=== PATIENT | female | born 1950 | race Hispanic/Latino ===

== ENCOUNTER 2018-01-09 08:32 | Day surgery (SDC) | payer MEDICARE ==
[2015-03-29 10:53] VITALS: BMI 37.8
[2018-01-09] MEDS ORDERED: Propofol 10 mg/ml Inj (20 ML) ONE ×2 (10:58→11:33)
[2018-01-09] MEDS ORDERED: Sodium Chloride 0.9% 1,000 ML IV SCH (11:30)
[2018-01-09 12:14] VITALS: BP 137/74; PULSE 89; RESP 18; TEMP 97.8; O2SAT 96
== END 2018-01-09 12:40 | disposition home or self-care (01) ==
LOC: ENDO 08:32
PROVIDERS: ATTEND Internal Medicine Gastroenterology
DX: K22.70 Barrett's esophagus without dysplasia (principal); K31.7 Polyp of stomach and duodenum; K29.50 Unspecified chronic gastritis without bleeding; K44.9 Diaphragmatic hernia without obstruction or gangrene; I10 Essential (primary) hypertension; M79.7 Fibromyalgia
CPT/HCPCS: 43239; 88305; 88312; 88342; J2001; J2704; J7040 ×2